=== PATIENT | male | born 1970 ===

== ENCOUNTER 2024-01-10 12:58 | Outpatient (CLI) | payer OTHER, SELFPAY ==
[2024-01-10 12:34] LABS: Abs Immature Grans 0.04 10^3/uL (0.0-0.06); Absolute Basophil Count 0.06 10^3/uL (0.0-0.2); Absolute Lymphocyte Count 1.25 10^3/uL (1.2-3.4); Absolute Monocyte Count 0.71 10^3/uL (0.1-0.8); Absolute Neutrophil Count 4.81 10^3/uL (1.2-6.7); Basophils % 0.9 %; Eosinophils % 1.4 %; HCT 49.4 % (40.0-50.0); Immature Grans % 0.6 %; Lymphocytes % 17.9 %; MCH 30.1 pg (27.0-33.0); MCHC 34.4 % (32.0-36.0); MCV 87 fL (80-95); Monocytes % 10.2 %; Platelet Count 234 10^3/uL (130-400); RBC 5.65 10^6/uL (4.36-5.78); RDW 12.1 % (11.8-14.1); RDW-SD 38.9 fL; WBC 6.97 10^3/uL (4.4-10.8)
[2024-01-10 13:05] LABS: ALT 41 U/L (16-63); AST 25 U/L (15-37); Albumin 3.8 g/dL (3.4-5.0); Alkaline Phosphatase 97 U/L (46-116); Anion Gap 7.2 mmol/L (3-11); BUN 15 mg/dL (7-18); Bilirubin, Total 0.36 mg/dL (0.2-1.0); CO2 25.8 mmol/L (21.0-32.0); CREATININE 1.1 mg/dL (0.70-1.30); Calcium 8.7 mg/dL (8.5-10.1); Chloride 105 mmol/L (98-107); Estimated GFR 80.77 (mL/min/1.73m2); Ferritin 362 ng/mL (26-388); Glucose 106 mg/dL (74-106); Sodium 138 mmol/L (136-145); Total Protein 6.9 g/dL (6.4-8.2)
[2024-01-10 13:22] LABS: Iron 47 ug/dL (65-175); Total Iron Binding Capacity 239 ug/dL (250-450); Transferrin Sat 20 % (20-55)
== END 2024-01-10 12:59 | disposition home or self-care (01) ==
PROVIDERS: PCP Internal Medicine Hematology & Oncology; Visit Provider Internal Medicine Hematology & Oncology
DX: R79.89 Other specified abnormal findings of blood chemistry (principal)
CPT/HCPCS: 36415; 80053; 82728; 83540; 83550; 85025